=== PATIENT | female | born 1935 | race Caucasian/White ===

== ENCOUNTER → 2016-09-19 | Outpatient (CLI) | payer MEDICARE, OTHER ==
[~2016-09-19] MED LIST: ACETAMINOPHEN PO; ALLEGRA ALLERG180 MG PO; ALLEGRA PO; ALPRAZOLAM PO; ALPRAZOLAM0.25 MG PO; ASMANEX HFA13 G1 INH; ASPIRIN PO; ASPIRIN81 MG PO; BUSPIRONE HCL7.5 MG PO; CERTAGEN PO; CITRUCEL500 MG PO; COLACE50 MG PO; DIOVAN HCT 160/1 TAB PO; EXCEDRIN EXTRA1 TAB PO; FAMOTIDINE PO; FLONASE16 GM; FLUNISOLIDE25 ML; GAS-X166 MG PO; HCTZ PO; KLONOPIN0.5 MG PO; LACTAID PO; LACTINEX T1 TAB.CHEW PO; LACTULOSE10 G/15 ML PO; LEVAQUIN PO; LEVOCETIRIZINE D5 MG PO; LEVOTHYROXINE100 MCG PO; LEXAPRO PO; LOMOTIL TABLET1 TAB PO; LOPRESSOR PO; LOSARTAN-HCTZ1 EAC2 PO; LOSARTAN-HCTZ1 EACH PO; MAG-OXIDE400 MG PO; METRONIDAZOLE PO; MIRALAX17 GM PO; MOBIC PO; MONTELUKAST SOD10 MG PO; NASALIDE INHALE25 ML; NASAREL29 MCG; NIRAVAM; NORVASC10 MG PO; OMEPRAZOLE40 M1 PO; OMEPRAZOLE40 MG PO; PHAZYME PO; PHENERGAN12.5 MG PO; PHENERGAN25 MG PO; POTASSIUM CHLO10 ME1 PO; PRAVASTATIN SOD40 MG PO; PREDNISONE10 MG PO; PROAIR HFA8.5 GM INH; PV NEURO VITE T1 TAB PO; REGLAN10 MG PO; REMERON15 MG PO; REQUIP0.5 MG PO; REQUIP2 MG PO; ROBINUL1 MG PO; ROPINIROLE HCL1 MG PO; SILVADENE TOP; STOOL SOFTENER100 M1 PO; SYNTHROID PO; TOPAMAX PO; TRAZODONE HCL150 MG PO; TRAZODONE PO; VENTOLIN5 MG/ML IH; VITAMIN B-122000 MC1 PO; VITAMIN D-32000 UNI1 PO; VITAMIN D-32000 UNI2 PO; VITAMIN D1000 UNI1 PO; WELCHOL625 MG PO; ZOCOR PO; ZYRTEC5 MG PO; [UNRECOGNIZED DRUG - OTHER]; [UNRECOGNIZED DRUG - OTHER] PO
--- NOTE | ~2016-09-19 | CT2 ---
[facility] A Service of [facility] RADIOLOGY TEXT RESULTS PATIENT: KATERINA ALLISON LOCATION: [facility] : 39 UNIT #: [id number] AGE: [address]: Myles Maki MD SEX: F ORDER DR: [id number] [facility] [place], [place] [address] [id number] O MR#: [id number] Acc #: [id number] NAME: KATERINA ALLISON. : 1935 SEX: F STUDY DATE/TIME: 09/19/2016 13:39 UNIT: [facility] ROOM: STUDY DESCRIPTION: CT Abd and Pelv W Cont Attending Physician: Myles Maki M.D. Referring Physician: Myels Maki M.D. Ordering Physician: Myles Maki M.D. Primary Care Physician: Minor Gupta D.O. MEDICAL IMAGING REPORT This report is preliminary unless electronic signature is present EXAM CT abdomen and pelvis INDICATIONS Right upper quadrant and left upper quadrant abdominal pain. Dyspepsia. Prior history of pancreatic cancer. Nausea. Recent pancreatic resection 09/11/2015. TECHNIQUE CT abdomen and pelvis with oral and IV contrast. Coronal and sagittal reconstructions were obtained. This CT exam was performed with one or more of the following radiation dose reduction techniques: automatic exposure control, adjustment of mA and/or kV according to patient size, and iterative reconstruction. COMPARISON CT abdomen and pelvis dated 07/14/2015. FINDINGS ABDOMEN: The patient is status post Whipple resection. No recurrent or residual mass is identified in the region of the pancreatic head. The pancreatojejunostomy and the choledochojejunostomy are within normal limits. There is mild thickening of both adrenal glands, however no discrete nodules are identified. No focal liver lesions. Gallbladder is surgically absent. The pancreas and kidneys are unchanged. No pathologically enlarged retroperitoneal or mesenteric lymph nodes. The bowel is not dilated. PELVIS: No pelvic mass or free pelvic fluid. There is a large volume of stool in the colon. There are 2 new well-circumscribed nodules with low STS. [facility] A Service of [facility] RADIOLOGY TEXT RESULTS PATIENT: KATERINA ALLISON LOCATION: [facility] : 39 UNIT #: [id number] AGE: [address]: Myles Maki MD SEX: F ORDER DR: internal attenuation (attenuation of fat) along the anterior abdominal wall in the omentum, probably represents an area of fat necrosis. One nodule is along the inferior margin of the transverse colon. The other is in the gastrocolic ligament above the transverse colon. Given the history of pancreatic cancer, I would recommend these be followed to differentiate from omental metastasis, however this is considered unlikely. No acute osseous abnormalities. There is degenerative change in the lumbar spine. IMPRESSION 1. No evidence of metastatic disease in the abdomen or pelvis. 2. Postsurgical change of Whipple resection. Surgical anastomoses are within normal limits. 3. 2 nodules in the omentum with central areas of fat density are probably fat necrosis. The appearance would be unusual for an omental metastases, however I would recommend that it be closely followed. Dictated by... Santiago Narayanan M.D. THIS IS AN ELECTRONICALLY VERIFIED REPORT Santiago Narayanan M.D. at 09/20/2016 7:57 AM ESTELLE/marlyn TD: 09/19/2016 18:45 JOB #: [id number] MEDICAL IMAGING REPORT Page 1 of 1 COPY
[2016-09-19 12:56] LABS: POC - CREATININE 0.84 mg/dL (0.44-1.03); POC - GFR >60.0 mL/min (>60)
== END | disposition home or self-care (01) ==
LOC: CCAT 12:08
PROVIDERS: Internal Medicine Gastroenterology
DX: R10.12 Left upper quadrant pain (principal); I96 Gangrene, not elsewhere classified; R10.13 Epigastric pain; Z85.07 Personal history of malignant neoplasm of pancreas; Z98.890 Other specified postprocedural states
CPT/HCPCS: 74177; 82565; Q9967